=== PATIENT | female | born 1950 | race Caucasian/White ===

== ENCOUNTER 2018-02-27 08:38 | Inpatient (IN) | payer OTHER ==
[2018-02-27] MEDS ORDERED: PROMETHAZINE HCL 25 MG/ML INJ IVP PRN (13:06)
[2018-02-27] MEDS ORDERED: ACETAMINOPHEN 325 MG TAB PO PRN (13:06)
[2018-02-27] MEDS: oxyCODONE IR 5 MG TAB PO PRN (13:59)
[2018-02-27] MEDS ORDERED: ALBUTEROL 60 PUFFS/8 GM MDI IH PRN (15:08)
[2018-02-27] MEDS ORDERED: LORazepam 1 MG TAB PO PRN (15:08)
[2018-02-27 15:10] LABS: PLATELET COUNT 210 10^3/uL (150-400)
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
[2018-02-27] MEDS: HYDROmorphONE/DILAUDID 1 MG/ML INJ IVP PRN ×2 (15:38→20:19)
[2018-02-27] MEDS: ONDANSETRON 4 MG/2 ML VIAL IVP PRN (15:40)
--- NOTE | 2018-02-27 16:05 | PDMN ---
Medical Necessity Medical necessity: Pt meets IP criteria per MD; est los >2 mn for eval/tx of diffuse leg pain, L leg discoloration & swelling; admit for further workup/ monitoring, ID consult & therapies; hx Waldenstrom's macroglobulinemia, meningioma & possible multiple myeloma; per H&P & order 02/27/18
[2018-02-27] MEDS: HYDROmorphONE/DILAUDID 2 MG TAB PO PRN (17:46)
--- NOTE | 2018-02-27 18:08 | GCON ---
[f rep st] CONSULTATION This is a 67-year-old female who saw my partner, Dr. Hermes Mora, with a conglomeration of symptoms yesterday, and she has been electively admitted to [facility] today for further dal[place] p. My understanding is, she was diagnosed with lymphoplasmacytic lymphoma with some possibility of m ultiple myeloma in approximately 2008. She received 3 months of unknown type therapy at that time. She recently moved from [place] to be with her son and daughter, but there is some issue regarding her living situation. She has fairly diffuse pain involving her chest and back, legs, and abdomen. She has a chronically swollen and discolored left leg. Past medical history is unclear. She gives a hi story of multiple hospital stays and meningiomas resected in the past. She is a current smoker. REVIEW OF SYSTEMS: She complains of pain. She has occasional abdominal pain and nausea. PHYSICAL EXAMINATION: VITAL SIGNS: Today, blood pressure 130/82, pulse 89, respiratory rate 16. Sh e is afebrile. She is overweight. She has a definite pressure of speech. NECK: She has some shott y adenopathy in her neck. CARDIAC: Normal S1, S2 without murmurs, clicks, or added sounds. ABDOMEN : There is no hepatosplenomegaly. Abdomen is obese. LOWER EXTREMITIES: Left leg is swollen greate r than the right and there are at least 2 eschars. LABORATORY DATA: There are no available labs at this time. IMPRESSION: Patient with history of Waldenstrom's. Staging and past treatments are unclear. She co mplains of pain over her body and I would think has possibly some underlying psychiatric issues. PLAN: At this time, is to admit. We will check a CBC, chemistry panel, serum protein electrophoresi s, beta 2 microglobulin, quantitative immunoglobulins, and a serum free light chain analysis, as well as an LDH. Assuming her kidney function looks okay, we will get a contrast CT of her chest, abdomen , and pelvis. We will also check a peripheral blood flow cytometry for a leukemia lymphoma panel. D epending on the outcome of these tests, further evaluation including a bone marrow biopsy might be in dicated. Her left leg appears chronically swollen. We will order an ultrasound to make sure we are not missing an acute clot. Our service will follow with you. /[id number]/MODL
[2018-02-27] MEDS: ZOLPIDEM TARTRATE 5 MG TAB PO SCH (20:19)
[2018-02-28] MEDS: HYDROmorphONE/DILAUDID 1 MG/ML INJ IVP PRN ×3 (00:05→20:53)
[2018-02-28] MEDS: ONDANSETRON 4 MG/2 ML VIAL IVP PRN (04:47)
[2018-02-28] MEDS: LORazepam 0.5 MG TAB PO PRN (04:47)
[2018-02-28] MEDS: ENOXAPARIN 40 MG/0.4 ML SYR SC SCH (08:35)
[2018-02-28] MEDS: oxyCODONE IR 5 MG TAB PO PRN ×4 (09:07→23:21)
--- NOTE | 2018-02-28 09:36 | SOAPPROG ---
JOSE Progress Note Assessment/Plan: Assessment: 1. Reported history of lymphoplasmacytic lymphoma/Waldenstroms-recently moved here. Records being reviewed by Dr. Mora. Unclear how active/inactive the disease is. 2. Pain-reports it's worse in right shoulder, left lower leg. 'hurts all over' Plan: Unclear how acute or chronic symptoms are and if they are related to underlying hematologic disorder. Initial labs show normal CBC, normal total protein, creatinine, calcium, etc. SPEP, immune globulins, serum viscosity all pending. Discussed CT scan of chest/abd/pevis to evaluate for adenopathy/ hepatosplenomegaly, etc. Patient agrees ? MRI of right shoulder? patient reports severe pain. Shows me a written record from july describing rotator cuff tear and humeral 'cyst'. Will discuss with hospitalist. Subjective: complains of severe pain in right shoulder, left lower leg, low back and head Objective: Vital Signs Temp Pulse Resp BP Pulse Ox 36.8 C 70 18 142/71 H 95 02/28/18 07:35 02/28/18 07:35 02/28/18 07:35 02/28/18 07:35 02/28/18 07:35 Laboratory Results 02/27/18 14:45 02/27/18 14:45 02/27/18 02/28/18 03/01/18 05:59 05:59 05:59 Intake Total 250 Output Total 800 Balance -550 Physical Exam - Physical Exam General Appearance: alert, no apparent distress Respiratory: lungs clear Abdomen: non-tender, soft Extremities: other (1-2+ left lower leg edema with scaling lesion. no obvious signs of infection) Neuro/Psych: other (tangential speech)
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
[2018-02-28] MEDS ORDERED: IOPAMIDOL (ISOVUE-300) 100 ML BTL ONE (11:41)
--- NOTE | 2018-02-28 12:30 | ASMTCMCOM ---
CM Note CM Note Notes: Pt recently moved to [place]. She was a direct admit today from [facility] for pain and swollen leg. She has a complicated medical hx including Waldlenstrohm's macroglobulemia. tests pending. It is unclear if pt will have any needs. CM to follow. Date Signed: 02/28/2018 12:29 PM Electronically Signed By:Yuli Linn LCSW
[2018-02-28] MEDS: ONDANSETRON DISINTEGRATING 4 MG TAB PO PRN ×2 (13:08→17:19)
--- NOTE | 2018-02-28 14:14 | HOSPPROG ---
Hospitalist Progress Note Assessment/Plan: 67 yo F with hx of lymphoplasmacytic lymphoma and questionable other cancer diagnosis presenting with diffuse pain/left leg discoloration and swelling # lymphoplasmacytic lymphoma: patient with hx that is very long and complicated and for which I do not have all of her out of state records for, oncology consulted and are looking over records--for now plan for spep, immune globulins , CT c/a/p # leg swelling/discoloration: US without e/o clot, appreciate ID consult who agree that this does not appear c/w infection, will continue to monitor for now and continue off of abx # shoulder pain: patient states she had an MRI recently, she has a note from the doctor who performed that exam describing a rotator cuff tear being the etiology for this injury without recommendations for surgery etc, pt to eval, OP f/u with ortho # chronic pain with continuous opiate use and dependency: will continue her OP regimen, she describes diffuse pain affecting her entire body that she feels is related to her cancer diagnosis--w/u is as per problem 1 # anxiety: significantly anxious/tearful, will continue prn ativan as she does at home # IP status FC Subjective: no significant overnight events, patient talking about moving back to [place] and continuing her tx there once this w/u is complete Objective: Vital Signs Temp Pulse Resp BP Pulse Ox 37.0 C 76 18 114/64 97 02/28/18 13:00 02/28/18 13:00 02/28/18 13:00 02/28/18 13:00 02/28/18 13:00 Laboratory Results 02/27/18 14:45 02/27/18 14:45 02/27/18 02/28/18 03/01/18 05:59 05:59 05:59 Intake Total 250 Output Total 800 Balance -550 Constitutional: no apparent distress, appears nourished Eyes: PERRL Ears, Nose, Mouth, Throat: moist mucous membranes, hearing normal Cardiovascular: regular rate and rhythym, no murmur, rub, or gallop, No edema Respiratory: no respiratory distress, no rales or rhonchi, clear to auscultation Gastrointestinal: normoactive bowel sounds, soft, non-tender abdomen Genitourinary: no bladder tenderness Skin: warm, other (LLE with hyperpigmentation/region of thickening, no warmth or sig TTP) Musculoskeletal: full muscle strength, muscular tenderness Neurologic: AAOx3 Psychiatric: interacting appropriately, not anxious, not encephalopathic - Time Spent With Patient Time Spent with Patient: greater than 35 minutes Time Spent with Patient: Greater than 35 minutes spent on this patients care, greater than 50% of time spent counseling, educating, and coordinating care regarding the above mentioned plan. ICD10 Worksheet Patient Problems: Problems Problem Status Onset Waldenstrom macroglobulinemia Acute - ICD10 Problem Qualifiers (1) Waldenstrom macroglobulinemia
[2018-02-28] MEDS: ZOLPIDEM TARTRATE 5 MG TAB PO SCH (20:53)
[2018-03-01] MEDS: HYDROmorphONE/DILAUDID 2 MG TAB PO PRN (03:06)
[2018-03-01] MEDS: LORazepam 0.5 MG TAB PO PRN (03:08)
[2018-03-01] MEDS: oxyCODONE IR 5 MG TAB PO PRN ×2 (04:49→14:04)
[2018-03-01] MEDS: HYDROmorphONE/DILAUDID 1 MG/ML INJ IVP PRN ×2 (06:10→11:04)
[2018-03-01 08:50] VITALS: BP 118/57
[2018-03-01] MEDS: ENOXAPARIN 40 MG/0.4 ML SYR SC SCH (09:19)
--- NOTE | 2018-03-01 09:42 | SOAPPROG ---
SOAP Progress Note Assessment/Plan: Assessment: 1. Reported history of lymphoplasmacytic lymphoma/Waldenstroms-recently moved here. Records being reviewed by Dr. Mora. Unclear how active/inactive the disease is. Labs thus far all normal. Immune globulins, SPEP and serum viscosity still pending. 3. LLE edema-no clear cellulitis, negative for DVT. CT scans of chest, abd, pelvis-no adenopathy, no hepatosplenomegaly Plan: Plan: SPEP, immune globulins, serum viscosity all pending. Given ongoing concern for pain in the right shoulder and left leg, consider additional imaging? ?MRI. Recent fall exacerbated left leg pain. Discussed with hospitalist, Dr. Lewis. Subjective: concerned about right shoulder and left lower leg pain Objective: Vital Signs Temp Pulse Resp BP Pulse Ox 36.6 C 84 16 118/57 L 96 03/01/18 08:49 03/01/18 08:49 03/01/18 08:49 03/01/18 08:49 03/01/18 08:49 Laboratory Results 02/27/18 14:45 02/27/18 14:45 02/28/18 03/01/18 03/02/18 05:59 05:59 05:59 Intake Total 250 1450 Output Total 800 Balance -550 1450 Physical Exam - Physical Exam General Appearance: alert, no apparent distress Respiratory: lungs clear Abdomen: non-tender, soft Extremities: other (left lower leg slightly edematous. no significant erythema) ICD10 Worksheet Patient Problems: Problems Problem Status Onset Waldenstrom macroglobulinemia Acute
--- NOTE | 2018-03-01 13:38 | ASDISCHSUM ---
Discharge Information Plan Status:Home with No Needs Medically Cleared to Leave:03/01/2018 Discharge Date:03/01/2018 CM D/C Disposition:Home, Routine, Self-Care ADT D/C Disposition:Home, Routine, Self-Care Projected Discharge Date:03/01/2018 Transportation at D/C: Discharge Delay Reason: Follow-Up Date:03/01/2018 Discharge Slot: Final Diagnosis: Placement Information Patient Contact Information Contact Name:SIOMARA Relationship:Klever Address:[address] Work Phone: City:[facility] Phone: [facility]/Zip Code:[place] [address] Email: Financial Information Financial Class:Medicare Primary Plan Desc:MEDICARE INPATIENT Primary Plan Number:[id number] Secondary Plan Desc: Secondary Plan Number: Assessment Information [facility] CM Progress Note CM Note CM Note Notes: Pt recently moved to [place]. She was a direct admit today from [facility] for pain and swollen leg. She has a complicated medical hx including Waldlenstrohm's macroglobulemia. tests pending. It is unclear if pt will have any needs. CM to follow. Date Signed: 02/28/2018 12:29 PM Electronically Signed By:Yuli Linn LCSW LACE SAM Length of stay for Answers: 2 days current admission Acuity / Level of Answers: Yes Care: Did the patient have an inpatient admission? Comorbidities - select Answers: Any tumor (including all that apply lymphoma or leukemia) Opioid dependence / Chronic pain Social determinants Answers: Mental health diagnosis (anxiety, depression, pers onality disorders, etc.) Score: 14 Date Signed: 03/01/2018 01:35 PM Electronically Signed By:Clotilde Coker RN Case Management Discharge Plan Note Case Management Discharge Discharge Order Complete? Answers: Yes Patient to Obtain Answers: Independently Medications Discharge Comments Notes: 03/01/2018 Case Management Note PT evaluated pt and found pt to be at baseline. There are no further d/c needs identified. Pt to d/c independent with follow up as directed. Date Signed: 03/01/2018 01:38 PM Electronically Signed By:Clotilde Coker RN Intervention Information
--- NOTE | 2018-03-01 14:02 | GDS ---
[f rep st] DISCHARGE SUMMARY DISCHARGE DIAGNOSES: 1. Fall with left lower leg pain. 2. Right shoulder pain. 3. Reported history of Waldenstrom macroglobulinemia. 4. Reported history of multiple other malignancies. 5. Query underlying psychiatric diagnosis. HISTORY: This is a 67-year-old female, who saw Oncology for the 1st time a few days ago. At ___ that she had a history of multiple malignancies and active Waldenstrom macroglobulinemia. She wa s complaining of pain all over. She was admitted for further workup. HOSPITAL COURSE: Patient was admitted and blood work was done including monoclonal antibodies which were still pending. She had a CT scan of her chest, abdomen, and pelvis which really showed no patho logy. She had ultrasound of her left lower leg which did not show any clot. Infectious Disease also saw the patient and did not think that was cellulitis of the left lower leg. She states that she in jured her leg while falling on the stairs a few days ago. Negative findings were discussed with the patient. She is going to be discharged home with followup with Oncology and Primary Care. She is on chronic pain medicines and had actually run out of them. I am going to prescribe some Dilaudid for her. TIME SPENT: Greater than 30 minutes was spent on discharge. /[id number]/MODL
== END 2018-03-01 16:30 | disposition home or self-care (01) | DRG 556 ==
LOC: F1N 12:33
PROVIDERS: ADMIT Internal Medicine; ATTEND Internal Medicine
DX: M79.605 Pain in left leg (principal); M25.511 Pain in right shoulder; W10.9XXA Fall (on) (from) unspecified stairs and steps, initial encounter; C88.0 Waldenstrom macroglobulinemia; G89.29 Other chronic pain; F11.20 Opioid dependence, uncomplicated; Z85.89 Personal history of malignant neoplasm of other organs and systems
CPT/HCPCS: 82232-90; 82784-90; 85060-90; 85810-90; 86334-90; 88184-90; 88185-91; 97162-GP; 97165-GO; G8978-GP-CI; G8979-GP-CI; G8980-GP-CI; G8987-GO-CI; G8988-GO-CI; G8989-GO-CI; J1170; J1642; J1650; J2405; J2550; Q9967